=== PATIENT | female | born 1980 | race Caucasian/White ===

== ENCOUNTER 2016-02-21 08:49 | Emergency (ER) | payer BC, OTHER ==
[2016-02-21 08:55] VITALS: TEMP 98.3
[2016-02-21] MEDS ORDERED: SODIUM CHLORIDE 0.9% 500 ML IV STA (09:07)
[2016-02-21] MEDS ORDERED: RX INFO: IV CONTRAST WAS GIVEN 1 EACH MISC MISCELLANE PRN (09:07)
--- NOTE | 2016-02-21 09:11 | ED ---
Abdominal Pain HPI - General Chief Complaint: Abdominal Pain Stated Complaint: abd pain Time Seen by Provider: 02/21/16 08:59 Source: patient, RN notes reviewed Mode of arrival: ambulatory Limitations: no limitations - History of Present Illness Initial Comments: 35-year-old female presents emergency Department with chief complaint of right lower quadrant abdominal pain. Patient was sent from primary care physician's office. Patient states she's been having pain over the last 4-5 days. She did have one day of fever 101.5. Patient states she's been on nausea but no vomiting no diarrhea no constipation. Patient states that she had a normal mental cycle. Patient denies any chance . Patient denies any dysuria , hematuria or vaginal bleeding vaginal discharge. Patient states that the bumps arose to bother her. Patient states movement causes increased pain. - Related Data Home Medications Medication Instructions Recorded Confirmed Ibuprofen [Motrin] 400 mg PO Q6HR PRN 02/21/16 02/21/16 Previous Rx's Medication Instructions Recorded Acetaminophen-Codeine 300-30mg 1 tab PO Q4H PRN #20 tablet 02/21/16 [Tylenol #3] Ibuprofen [Motrin] 600 mg PO Q8HR PRN #30 tab 02/21/16 Allergies Allergy/AdvReac Type Severity Reaction Status Date / Time latex Allergy Swelling Verified 02/21/16 09:50 Review of Systems ROS Statement: Those systems with pertinent positive or pertinent negative responses have been documented in the HPI. ROS Other: All systems not noted in ROS Statement are negative. Past Medical History Additional Past Medical History / Comment(s): celiac disease History of Any Multi-Drug Resistant Organisms: None Reported Past Surgical History: Section Past Psychological History: No Psychological Hx Reported Smoking Status: Current every day smoker Past Alcohol Use History: Occasional Past Drug Use History: None Reported General Exam Limitations: no limitations General appearance: alert, in no apparent distress Head exam: Present: atraumatic, normocephalic, normal inspection Respiratory exam: Present: normal lung sounds bilaterally. Absent: respiratory distress, wheezes, rales, rhonchi, stridor Cardiovascular Exam: Present: regular rate, normal rhythm, normal heart sounds. Absent: systolic murmur, diastolic murmur, rubs, gallop, clicks GI/Abdominal exam: Present: soft, tenderness (Moderate right lower quadrant tenderness), normal bowel sounds, other (Positive psoas test). Absent: distended, guarding, rebound, rigid Back exam: Absent: CVA tenderness (R), CVA tenderness (L) Skin exam: Present: warm, dry, intact, normal color. Absent: rash Course Vital Signs 02/21/16 08:52 Temperature 98.3 F Pulse Rate 85 Respiratory 18 Rate Blood Pressure 113/72 O2 Sat by Pulse 100 Oximetry Medical Decision Making - Medical Decision Making 35-year-old female presented emergency Department chief complaint right lower quadrant abdominal pain. Patient has a 2.3 cm ovarian cyst. Patient has some enteritis changes. Patient will be discharged with pain medication advised to follow-up with [facility] [facility]. Return parameters were discussed. - Lab Data Result diagrams: 02/21/16 09:10 02/21/16 09:10 Lab Results 02/21/16 02/21/16 02/21/16 Range/Units 09:10 09:10 09:10 WBC 7.9 (3.8-10.6) k/uL RBC 4.51 (3.80-5.40) m/uL Hgb 14.0 (11.4-16.0) gm/dL Hct 42.9 (34.0-46.0) % MCV 95.2 (80.0-100.0) fL MCH 31.1 (25.0-35.0) pg MCHC 32.6 (31.0-37.0) g/dL RDW 12.1 (11.5-15.5) % Plt Count 266 (150-450) k/uL Neutrophils % 59 % Lymphocytes % 31 % Monocytes % 6 % Eosinophils % 2 % Basophils % 0 % Neutrophils # 4.6 (1.3-7.7) k/uL Lymphocytes # 2.5 (1.0-4.8) k/uL Monocytes # 0.5 (0-1.0) k/uL Eosinophils # 0.1 (0-0.7) k/uL Basophils # 0.0 (0-0.2) k/uL Sodium 141 (137-145) mmol/L Potassium 4.4 (3.5-5.1) mmol/L Chloride 103 (98-107) mmol/L Carbon Dioxide 28 (22-30) mmol/L Anion Gap 10 mmol/L BUN 8 (7-17) mg/dL Creatinine 0.68 (0.52-1.04) mg/dL Est GFR (MDRD) Af Amer >60 (>60 ml/min/1.73 sqM) Est GFR (MDRD) Non-Af >60 (>60 ml/min/1.73 sqM) Glucose 87 (74-99) mg/dL Calcium 9.2 (8.4-10.2) mg/dL Total Bilirubin 0.7 (0.2-1.3) mg/dL AST 28 (14-36) U/L ALT 49 (9-52) U/L Alkaline Phosphatase 59 (38-126) U/L Total Protein 7.5 (6.3-8.2) g/dL Albumin 4.1 (3.5-5.0) g/dL Amylase 43 (30-110) U/L Lipase 154 (23-300) U/L Urine Color Yellow Urine Appearance Clear (Clear) Urine pH 5.5 (5.0-8.0) Ur Specific [place] 1.013 (1.001-1.035) Urine Protein Negative (Negative) Urine Glucose (UA) Negative (Negative) Urine Ketones Negative (Negative) Urine Blood Negative (Negative) Urine Nitrate Negative (Negative) Urine Bilirubin Negative (Negative) Urine Urobilinogen <2.0 (<2.0) mg/dL Ur Leukocyte Esterase Negative (Negative) Urine HCG, Qual (Not Detectd) 02/21/16 Range/Units 09:10 WBC (3.8-10.6) k/uL RBC (3.80-5.40) m/uL Hgb (11.4-16.0) gm/dL Hct (34.0-46.0) % MCV (80.0-100.0) fL MCH (25.0-35.0) pg MCHC (31.0-37.0) g/dL RDW (11.5-15.5) % Plt Count (150-450) k/uL Neutrophils % % Lymphocytes % % Monocytes % % Eosinophils % % Basophils % % Neutrophils # (1.3-7.7) k/uL Lymphocytes # (1.0-4.8) k/uL Monocytes # (0-1.0) k/uL Eosinophils # (0-0.7) k/uL Basophils # (0-0.2) k/uL Sodium (137-145) mmol/L Potassium (3.5-5.1) mmol/L Chloride (98-107) mmol/L Carbon Dioxide (22-30) mmol/L Anion Gap mmol/L BUN (7-17) mg/dL Creatinine (0.52-1.04) mg/dL Est GFR (MDRD) Af Amer (>60 ml/min/1.73 sqM) Est GFR (MDRD) Non-Af (>60 ml/min/1.73 sqM) Glucose (74-99) mg/dL Calcium (8.4-10.2) mg/dL Total Bilirubin (0.2-1.3) mg/dL AST (14-36) U/L ALT (9-52) U/L Alkaline Phosphatase (38-126) U/L Total Protein (6.3-8.2) g/dL Albumin (3.5-5.0) g/dL Amylase (30-110) U/L Lipase (23-300) U/L Urine Color Urine Appearance (Clear) Urine pH (5.0-8.0) Ur Specific [place] (1.001-1.035) Urine Protein (Negative) Urine Glucose (UA) (Negative) Urine Ketones (Negative) Urine Blood (Negative) Urine Nitrate (Negative) Urine Bilirubin (Negative) Urine Urobilinogen (<2.0) mg/dL Ur Leukocyte Esterase (Negative) Urine HCG, Qual Not Detected (Not Detectd) Disposition Clinical Impression: Abdominal pain, Right ovarian cyst Disposition: HOME SELF-CARE Condition: Stable Instructions: Ovarian Cyst (ED) Additional Instructions: Please return to the Emergency Department if symptoms worsen or any other concerns. Prescriptions: Acetaminophen-Codeine 300-30mg [Tylenol #3] 1 tab PO Q4H PRN #20 tablet PRN Reason: pain Ibuprofen [Motrin] 600 mg PO Q8HR PRN #30 tab PRN Reason: Pain Time of Disposition: 10:52
[2016-02-21 09:31] LABS: Appearance,Urine Clear (Clear); Bilirubin,Urine Negative (Negative); Glucose,Urine (UA) Negative (Negative); Ketones,Urine Negative (Negative); Leukocyte Esterase,Urine Negative (Negative); Nitrite,Urine Negative (Negative); PH, Urine 5.5 (5.0-8.0); Protein,Urine Negative (Negative); Specific Gravity,Urine 1.013 (1.001-1.035); UA Billing (MACRO vs. MICRO) CHEM; Urobilinogen,Urine <2.0 mg/dL (<2.0)
[2016-02-21 09:37] LABS: Basophils % (A) 0 %; CH 31.6; CHCM 33.3; Eosinophils # (A) 0.1 k/uL (0-0.7); Eosinophils % (A) 2 %; HCT 42.9 % (34.0-46.0); HDW 2.28; Luc # (Auto) 0.14; Luc % (Auto) 2; Lymphocytes # (A) 2.5 k/uL (1.0-4.8); Lymphocytes % (A) 31 %; MCH 31.1 pg (25.0-35.0); MCHC 32.6 g/dL (31.0-37.0); MCV 95.2 fL (80.0-100.0); Mean Platelet Volume 7.1; Monocytes # (A) 0.5 k/uL (0-1.0); Monocytes % (A) 6 %; Neutrophils # (A) 4.6 k/uL (1.3-7.7); Neutrophils % (A) 59 %; RBC 4.51 m/uL (3.80-5.40); RDW 12.1 % (11.5-15.5); WBC 7.9 k/uL (3.8-10.6); WBC (Perox) 7.95
[2016-02-21 09:48] LABS: ALT 49 U/L (9-52); AST 28 U/L (14-36); Alkaline Phosphatase 59 U/L (38-126); Amylase 43 U/L (30-110); Anion Gap 10 mmol/L; Blood Urea Nitrogen 8 mg/dL (7-17); Calcium 9.2 mg/dL (8.4-10.2); Carbon Dioxide 28 mmol/L (22-30); Chloride 103 mmol/L (98-107); Glucose 87 mg/dL (74-99); Non-African American GFR(MDRD) >60 (>60 ml/min/1.73 sqM); Potassium 4.4 mmol/L (3.5-5.1); Sodium 141 mmol/L (137-145); Total Bilirubin 0.7 mg/dL (0.2-1.3); Total Protein 7.5 g/dL (6.3-8.2)
--- NOTE | 2016-02-21 10:40 | CT ---
EXAMINATION TYPE: CT abdomen pelvis w con DATE OF EXAM: 02/21/2016 10:09 AM COMPARISON: NONE HISTORY: 35-year-old female with abdominal pain, complains of RLQ pain. TECHNIQUE: Contiguous axial scanning of the abdomen and pelvis following administration of 100 ml Omn ipaque 300 IV contrast. Delayed images through the kidneys and coronal/sagittal reconstructions perf ormed. CT DLP: 1511 mGycm Automated exposure control for dose reduction was used. FINDINGS: Heart is normal size without pericardial effusion. Lung bases clear without pleural effusion. Slightly diminished attenuation of the liver as compared to the spleen on portal venous phase. There may be some fatty sparing along the cyndie hepatis. No focal liver lesion is seen. Portal venous syste m is patent. No biliary ductal dilatation. Gallbladder, adrenal glands, right kidney, spleen, and pancreas appear within normal limits. Punctate 2 mm nonobstructive calculus lower pole left kidney. Incidental umbilical augmentation. No dilated small bowel, free fluid, or free air. Scattered dominant but nonenlarged mesenteric lymph nodes measure up to 5 mm. No retroperitoneal lymphadenopathy. Normal appendix. There is some liquid stool within the cecum and some scattered fluid-filled small enedelia wel loops in the lower abdomen. Scattered mild colonic diverticulosis particularly along the descending colon without pericolonic inf lammatory change. Uterus is visualized as are both ovaries. There is a 2.3 cm cystic structure within the right ovary. No abnormal fluid collection in the pelvis or pelvic lymphadenopathy seen. Bones: No osseous destructive process. There is some posterior bulging disc at L5-S1. IMPRESSION: 1. NORMAL APPENDIX. 2. SOME LIQUID STOOL IN THE CECUM AND FLUID WITHIN LOWER ABDOMINAL SMALL BOWEL LOOPS COULD REFLECT AN ENTERITIS. 3. SUSPECT HEPATIC STEATOSIS. CORRELATE WITH LFT's, LIPID PROFILE, AND PATIENT RISK FACTORS. 4. A 2 MM NONOBSTRUCTIVE LEFT RENAL CALCULUS, MILD LEFT HEMICOLONIC DIVERTICULOSIS, AND A 2.3 CM SIOBHAN NANT FOLLICLE OR FUNCTIONAL CYST IN THE RIGHT OVARY.
[2016-02-21 11:12] VITALS: BP 103/57; PULSE 63; RESP 16
== END 2016-02-21 11:12 | disposition home or self-care (01) ==
LOC: EC 08:49
DX: N83.201 Unspecified ovarian cyst, right side (principal); F17.200 Nicotine dependence, unspecified, uncomplicated; Z91.040 Latex allergy status
CPT/HCPCS: 99284; 96360; 96361; 36415; 80053; 82150; 83690; 85025; 81003; 81025; 74177; Q9967

== ENCOUNTER 2017-10-12 02:21 | Emergency (ER) | payer BC, OTHER ==
[2017-10-12] MEDS ORDERED: IBUPROFEN 800 MG TAB PO STA (02:47)
--- NOTE | 2017-10-12 03:11 | XR ---
EXAMINATION TYPE: XR hand complete RT DATE OF EXAM: 10/12/2017 COMPARISON: NONE HISTORY: Thumb injury TECHNIQUE: 3 views FINDINGS: Metacarpals are intact. I see no fracture nor dislocation. Thumb appears intact. IMPRESSION: No acute abnormality of the right hand.
--- NOTE | 2017-10-12 03:38 | ED ---
General Adult HPI - General Chief complaint: Extremity Injury, Upper Stated complaint: [facility] THUMB INJURY Time Seen by Provider: 10/12/17 02:40 Source: patient, RN notes reviewed Mode of arrival: ambulatory Limitations: no limitations - History of Present Illness Initial comments: 36-year-old female presents to the emergency determine for a chief complaint of right thumb injury occurring about 2 hours ago. Patient states she was at work when she jammed her right thumb against a machine. Patient states she wants to make sure it isn't broken. Patient is able to move the thumb but states it is painful. She states the dorsal aspect of the right thumb is on is causing her the most pain. Patient denies any other injuries at work. Patient denies hitting her head. Patient denies ever having surgery on that hand. Patient has no other complaints at this time including shortness of breath, chest pain, abdominal pain, nausea or vomiting, headache, or visual changes. - Related Data Home Medications Medication Instructions Recorded Confirmed No Known Home Medications 10/12/17 10/12/17 Allergies Allergy/AdvReac Type Severity Reaction Status Date / Time latex Allergy Swelling Verified 02/21/16 09:50 Review of Systems ROS Statement: Those systems with pertinent positive or pertinent negative responses have been documented in the HPI. ROS Other: All systems not noted in ROS Statement are negative. Past Medical History Additional Past Medical History / Comment(s): celiac disease History of Any Multi-Drug Resistant Organisms: None Reported Past Surgical History: Section Past Psychological History: No Psychological Hx Reported Smoking Status: Current every day smoker Past Alcohol Use History: Rare Past Drug Use History: None Reported General Exam Limitations: no limitations General appearance: alert, in no apparent distress Head exam: Present: atraumatic, normocephalic, normal inspection Eye exam: Present: normal appearance. Absent: scleral icterus, conjunctival injection ENT exam: Present: normal exam, mucous membranes moist Neck exam: Present: normal inspection, full ROM. Absent: tenderness, meningismus, lymphadenopathy Respiratory exam: Present: normal lung sounds bilaterally. Absent: respiratory distress, wheezes, rales, rhonchi, stridor Cardiovascular Exam: Present: regular rate, normal rhythm, normal heart sounds. Absent: systolic murmur, diastolic murmur, rubs, gallop, clicks Extremities exam: Present: tenderness (Patient has tenderness over the dorsal proximal phalange, MCP and PIP joint of the right thumb. No tenderness over the distal phalanges.), normal capillary refill (Capillary refill less than 2 seconds and radial pulse 2+ in the right upper extremity), joint swelling ( Minimal swelling noted of right thumb), other (Sensation intact in right thumb. No evidence of infection. No erythema or increased warmth.). Absent: full ROM (Patient is able to flex and extend it does have limited range of due to pain in the right thumb.) Course Vital Signs 10/12/17 02:26 Temperature 98.2 F Pulse Rate 65 Respiratory 20 Rate Blood Pressure 117/77 O2 Sat by Pulse 98 Oximetry Medical Decision Making - Medical Decision Making 36-year-old female presents to the emergency department for a chief complaint of right thumb pain 2 hours. Patient accidentally jammed her thumb while at work. Patient did not sustain any other injuries. On exam patient is able to move all joints of the right thumb although does have some limited range of motion due to pain of the right thumb. Tenderness over the proximal phalanges and MCP and IP joint of the right thumb. No tenderness in the scaphoid or the rest of the right hand. Mild swelling noted to the thumb. Neurovascular intact. X-ray demonstrates no acute fractures or dislocations. Patient likely has a contusion or sprain of the right thumb. However I did discuss possibility of repeat x-rays in 7-10 days if symptoms continue. Otherwise patient will rest ice and elevate the right thumb. Lucien wrap was applied. Patient will take Motrin and Tylenol for pain and follow-up with primary care or orthopedics in one to 2 days for recheck. I did write patient a note that limits the use of the right thumb at work as patient would like to return to work at her scheduled shift tomorrow. Disposition Clinical Impression: Thumb injury Disposition: HOME SELF-CARE Condition: Good Instructions: Finger Sprain (ED), RICE Therapy (ED) Additional Instructions: Rest ice and elevate the right thumb. Please take Motrin and Tylenol for pain. Please follow up with primary care in 1-2 days. Please return to the emergency department if you have any worsening symptoms. Is patient prescribed a controlled substance at d/c from ED?: No Referrals: Germain Abebe DO [Doctor of Osteopathic Medicine] - 1-2 days Time of Disposition: 03:37
[2017-10-12 03:53] VITALS: BP 118/70; PULSE 67; RESP 18; TEMP 98
== END 2017-10-12 03:51 | disposition home or self-care (01) ==
LOC: EC 02:21
DX: S69.91XA Unspecified injury of right wrist, hand and finger(s), initial encounter (principal); F17.200 Nicotine dependence, unspecified, uncomplicated; Z91.040 Latex allergy status; W23.0XXA Caught, crushed, jammed, or pinched between moving objects, initial encounter; Y99.0 Civilian activity done for income or pay
CPT/HCPCS: 99283

== ENCOUNTER → 2019-02-01 | Outpatient (CLI) | payer BC ==
--- NOTE | 2019-02-01 09:52 | US ---
EXAMINATION TYPE: US abdomen limited DATE OF EXAM: 02/01/2019 COMPARISON: CT CLINICAL HISTORY: R945 ABN LIVER FUNCTIONS,E66.9 OBESITY. Abnormal labs EXAM MEASUREMENTS: Liver Length: 17.0 cm Gallbladder Wall: 0.3 cm CBD: 0.6 cm Right Kidney: 11.0 x 3.9 x 5.3 cm Pancreas: 2mm duct visualized is within normal limits of size, tail obscured by overlying bowel gas Liver: Upper limits of normal for size, difficult to penetrate, heterogeneous, possible fatty sparin g near GB Gallbladder: wnl Evidence for sonographic Velasquez's sign: No CBD: wnl Right Kidney: wnl IMPRESSION: Heterogenous hepatic echotexture, likely related to hepatic steatosis with probable focal fatty sparing near the gallbladder fossa (a typical location for focal fatty sparing). Correlate wit h liver function test results.
== END | disposition home or self-care (01) ==
LOC: RADUSWWP 08:15
PROVIDERS: ATTEND Family Medicine
DX: R94.5 Abnormal results of liver function studies (principal); E66.9 Obesity, unspecified
CPT/HCPCS: 76705

== ENCOUNTER → 2019-11-07 | Outpatient (CLI) | payer BC ==
--- NOTE | 2019-11-07 09:50 | US ---
EXAMINATION TYPE: US liver DATE OF EXAM: 11/07/2019 COMPARISON: 02/01/2019 CLINICAL HISTORY: 39-year-old female R74.8 abn levels of serum enzymes. TECHNIQUE: Multiple sonographic images of the right upper quadrant are obtained. FINDINGS: EXAM MEASUREMENTS: Liver Length: 17.7 cm Gallbladder Wall: 0.2 cm CBD: 0.3 cm Right Kidney: 9.7 x 3.2 x 4.6 cm Pancreas: Obscured by bowel gas Liver: Increased attenuation, decreased visualization of vessels suggestive of fatty infiltrate Gallbladder: wnl Evidence for sonographic Velasquez's sign: No CBD: wnl Right Kidney: No hydronephrosis or masses seen IMPRESSION: Borderline hepatomegaly (17.7 cm) with at least moderate hepatic steatosis. Correlate with LFTs, lipi d profile, and patient risk factors. No gallstones or biliary ductal dilatation.
== END | disposition home or self-care (01) ==
LOC: RADUSWWP 06:52
PROVIDERS: ATTEND Family Medicine
DX: R16.0 Hepatomegaly, not elsewhere classified (principal); K76.0 Fatty (change of) liver, not elsewhere classified
CPT/HCPCS: 76705

== ENCOUNTER 2021-12-07 11:24 | Emergency (ER) | payer BC ==
[2021-12-07 11:38] VITALS: TEMP 98.5
[2021-12-07] MEDS ORDERED: SODIUM CHLORIDE 0.9% 1,000 ML IV STA (11:47)
[2021-12-07] MEDS ORDERED: MORPHINE SULFATE 4 MG/ML SYRINGE IVP STA (11:47)
[2021-12-07] MEDS ORDERED: ONDANSETRON 4 MG/2 ML VIAL IVP STA (11:47)
[2021-12-07 12:15] LABS: Basophils % (A) 0 %; Eosinophils # (A) 0.1 k/uL (0-0.7); Eosinophils % (A) 1 %; HCT 45.1 % (34.0-46.0); HGB 15.3 gm/dL (11.4-16.0); Lymphocytes # (A) 1.6 k/uL (1.0-4.8); Lymphocytes % (A) 9 %; MCH 34.5 pg (25.0-35.0); MCHC 33.8 g/dL (31.0-37.0); Mean Platelet Volume 7.8; Monocytes # (A) 0.7 k/uL (0-1.0); Monocytes % (A) 4 %; Neutrophils # (A) 14.4 k/uL (1.3-7.7); Neutrophils % (A) 84 %; Platelet Count 231 k/uL (150-450); RBC 4.43 m/uL (3.80-5.40); RDW 12.1 % (11.5-15.5); WBC 17.1 k/uL (3.8-10.6)
[2021-12-07 12:23] LABS: ALT 53 U/L (4-34); AST 25 U/L (14-36); African American GFR (CKD) >90 (>60 ml/min/1.73 sqM); Albumin 4.2 g/dL (3.5-5.0); Alkaline Phosphatase 71 U/L (38-126); Anion Gap 8 mmol/L; Blood Urea Nitrogen 10 mg/dL (7-17); Calcium 8.8 mg/dL (8.4-10.2); Carbon Dioxide 23 mmol/L (22-30); Chloride 104 mmol/L (98-107); Glucose 103 mg/dL (74-99); Lipase 159 U/L (23-300); Non-African American GFR(CKD) >90 (>60 ml/min/1.73 sqM); Potassium 4.9 mmol/L (3.5-5.1); Sodium 135 mmol/L (137-145); Total Bilirubin 1.2 mg/dL (0.2-1.3); Total Protein 7.1 g/dL (6.3-8.2)
[2021-12-07 12:27] LABS: Appearance,Urine Cloudy (Clear); Bacteria,Urine Rare /hpf; Bilirubin,Urine Negative (Negative); Blood,Urine Trace (Negative); Color,Urine Light Yellow; Glucose,Urine (UA) Negative (Negative); Ketones,Urine Negative (Negative); Leukocyte Esterase,Urine Negative (Negative); Mucus,Urine Rare /hpf; Nitrite,Urine Negative (Negative); PH, Urine 5.5 (5.0-8.0); Protein,Urine Negative (Negative); RBC,Urine 1 /hpf (0-5); Specific Gravity,Urine 1.014 (1.001-1.035); Squamous Epithelial Cell,Urine 4 /hpf (0-4); Urobilinogen,Urine <2.0 mg/dL (<2.0); WBC,Urine 2 /hpf (0-5)
--- NOTE | 2021-12-07 13:14 | CT ---
EXAMINATION TYPE: CT abdomen pelvis w con DATE OF EXAM: 12/07/2021 HISTORY: Left sided abdominal pain, s/p tubal ligation [address] DLP: 1064.3mGycm Automated Exposure Control for Dose Reduction was Utilized. CONTRAST: CT scan of the abdomen and pelvis is performed without oral but with IV Contrast, patient injected wi th 100 mL of Isovue 300. COMPARISON: CT study February 21, 2016 FINDINGS: LUNG BASES: No significant abnormality is appreciated. LIVER/GB: Visualized liver remains heterogeneously hypodense suggesting mild diffuse fatty infiltrati on similar to prior. PANCREAS: No significant abnormality is seen. SPLEEN: No significant abnormality is seen. ADRENALS: No significant abnormality is seen. KIDNEYS: Symmetric cortical medullary uptake and excretion without hydronephrosis seen bilaterally. S table 2 mm nonobstructing left renal calculus lower pole of the coronal image 57. BOWEL: Study suboptimal evaluation of bowel without enteric contrast. No suspicious small or large enedelia wel dilatation is seen. Stomach not greatly distended and thus suboptimally evaluated. There are some diverticula in the left and sigmoid colon greatest in number along the left colon. There is moderate to severe ill-defined fluid and fat stranding along the left colon. No free air. No well-formed flui d collection or abscess seen. Normal-appearing appendix redemonstrated. UTERUS/ADNEXA: Anteverted uterus. Left ovary has new 3.7 x 3.2 cm low dense lesion felt to reflect si mple ovarian cyst axial image 76. LYMPH NODES: No greater than 1cm abdominal or pelvic lymph nodes are appreciated. OSSEOUS STRUCTURES: No significant abnormality is seen. OTHER: No significant additional abnormality is seen. IMPRESSION: Findings consistent with a moderate to severe acute but uncomplicated diverticulitis invo lving the left colon as detailed above.
[2021-12-07] MEDS ORDERED: AMOXIC-POT CLAV 875-125MG 1 EACH TAB PO STA (13:18)
--- NOTE | 2021-12-07 13:43 | ED ---
General Adult HPI - General Chief complaint: Recheck/Abnormal Lab/Rx Stated complaint: post op abd pain Time Seen by Provider: 12/07/21 11:40 Source: patient Mode of arrival: ambulatory Limitations: no limitations - History of Present Illness Initial comments: Patient is a 41-year-old female who presents to the emergency department with a chief complaint of abdominal pain. She states symptoms started yesterday. Patient notes that she had tubal ligation surgery on 11/25/21 at [facility] in [place]. Patient states she has been feeling well since the surgery, not currently taking pain medication. Yesterday patient became endorsing left-sided abdominal pain. Describes the pain as a consistent aching. It is associated with nausea. Patient began having chills this morning. She went to urgent care who sent her to the emergency department. She denies fever, chest pain, shortness of breath, back pain, burning with urination, blood in urine. Does report diarrhea however this is a chronic issue for her due to her celiac disease. Denies blood in stool. - Related Data Previous Rx's Medication Instructions Recorded Amoxic-Pot Clav 875-125Mg 1 tab PO Q12HR 10 Days #20 tab 12/07/21 [Augmentin 875-125] Ibuprofen [Motrin] 800 mg PO Q6HR #30 tab 12/07/21 Ondansetron Odt [Zofran Odt] 4 mg PO Q8HR PRN #15 tab 12/07/21 Allergies Allergy/AdvReac Type Severity Reaction Status Date / Time latex Allergy Swelling Verified 12/07/21 11:38 Review of Systems ROS Statement: Those systems with pertinent positive or pertinent negative responses have been documented in the HPI. ROS Other: All systems not noted in ROS Statement are negative. Past Medical History Additional Past Medical History / Comment(s): celiac disease History of Any Multi-Drug Resistant Organisms: None Reported Past Surgical History: Section, Tubal Ligation Past Psychological History: No Psychological Hx Reported Smoking Status: Current every day smoker Past Alcohol Use History: Rare Past Drug Use History: Marijuana General Exam Limitations: no limitations General appearance: alert, in no apparent distress Eye exam: Present: normal appearance, PERRL, EOMI. Absent: scleral icterus, conjunctival injection, periorbital swelling Respiratory exam: Present: normal lung sounds bilaterally. Absent: respiratory distress, wheezes, rales, rhonchi, stridor Cardiovascular Exam: Present: regular rate, normal rhythm, normal heart sounds. Absent: systolic murmur, diastolic murmur, rubs, gallop, clicks GI/Abdominal exam: Present: soft, tenderness (LLQ), normal bowel sounds, other (healing surgical incisions). Absent: distended, guarding, rebound, rigid Neurological exam: Present: alert, oriented X3, CN II-XII intact Psychiatric exam: Present: normal affect, normal mood Skin exam: Present: warm, dry, intact, normal color. Absent: rash Course Vital Signs 12/07/21 12/07/21 11:36 13:52 Temperature 98.5 F Pulse Rate 90 83 Respiratory 20 16 Rate Blood Pressure 130/90 123/87 O2 Sat by Pulse 99 98 Oximetry Medical Decision Making - Medical Decision Making This is a 41-year-old presenting with left-sided abdominal pain. Afebrile. The abdomen is soft. There is significant left lower quadrant tenderness without rebound tenderness or guarding. Laboratory studies obtained. There is leukocytosis at 17.1. Other laboratory studies are relatively unremarkable. CT of the abdomen and pelvis with contrast was obtained which shows findings consistent with moderate to severe cube uncomplicated diverticulitis involving left colon. Pain and nausea controlled. Results discussed with patient. Patient is afebrile, looks well, no vomiting, no abdominal abscess or perforation. However given the severity of her diverticulitis on CT scan I did offer admission for pain control. Patient declined. She will be discharged with strict return parameters. I will send her home with Augmentin, Motrin 800, Zofran. She was given first dose of Augmentin in the emergency department. Dr. James is my attending. - Lab Data Result diagrams: 12/07/21 11:56 12/07/21 11:56 Lab Results 12/07/21 12/07/21 12/07/21 Range/Units 11:56 11:56 11:56 WBC 17.1 H (3.8-10.6) k/uL RBC 4.43 (3.80-5.40) m/uL Hgb 15.3 (11.4-16.0) gm/dL Hct 45.1 (34.0-46.0) % MCV 102.0 H (80.0-100.0) fL MCH 34.5 (25.0-35.0) pg MCHC 33.8 (31.0-37.0) g/dL RDW 12.1 (11.5-15.5) % Plt Count 231 (150-450) k/uL MPV 7.8 Neutrophils % 84 % Lymphocytes % 9 % Monocytes % 4 % Eosinophils % 1 % Basophils % 0 % Neutrophils # 14.4 H (1.3-7.7) k/uL Lymphocytes # 1.6 (1.0-4.8) k/uL Monocytes # 0.7 (0-1.0) k/uL Eosinophils # 0.1 (0-0.7) k/uL Basophils # 0.0 (0-0.2) k/uL Sodium 135 L (137-145) mmol/L Potassium 4.9 (3.5-5.1) mmol/L Chloride 104 (98-107) mmol/L Carbon Dioxide 23 (22-30) mmol/L Anion Gap 8 mmol/L BUN 10 (7-17) mg/dL Creatinine 0.63 (0.52-1.04) mg/dL Est GFR (CKD-EPI)AfAm >90 (>60 ml/min/1.73 sqM) Est GFR (CKD-EPI)NonAf >90 (>60 ml/min/1.73 sqM) Glucose 103 H (74-99) mg/dL Calcium 8.8 (8.4-10.2) mg/dL Total Bilirubin 1.2 (0.2-1.3) mg/dL AST 25 (14-36) U/L ALT 53 H (4-34) U/L Alkaline Phosphatase 71 (38-126) U/L Total Protein 7.1 (6.3-8.2) g/dL Albumin 4.2 (3.5-5.0) g/dL Lipase 159 (23-300) U/L Urine Color Urine Appearance (Clear) Urine pH (5.0-8.0) Ur Specific [place] (1.001-1.035) Urine Protein (Negative) Urine Glucose (UA) (Negative) Urine Ketones (Negative) Urine Blood (Negative) Urine Nitrite (Negative) Urine Bilirubin (Negative) Urine Urobilinogen (<2.0) mg/dL Ur Leukocyte Esterase (Negative) Urine RBC (0-5) /hpf Urine WBC (0-5) /hpf Ur Squamous Epith Cells (0-4) /hpf Urine Bacteria (None) /hpf Urine Mucus (None) /hpf Coronavirus (PCR) (Not Detectd) Influenza Type A RNA Not Detected (Not Detectd) Influenza Type B (PCR) Not Detected (Not Detectd) 12/07/21 12/07/21 Range/Units 11:56 11:56 WBC (3.8-10.6) k/uL RBC (3.80-5.40) m/uL Hgb (11.4-16.0) gm/dL Hct (34.0-46.0) % MCV (80.0-100.0) fL MCH (25.0-35.0) pg MCHC (31.0-37.0) g/dL RDW (11.5-15.5) % Plt Count (150-450) k/uL MPV Neutrophils % % Lymphocytes % % Monocytes % % Eosinophils % % Basophils % % Neutrophils # (1.3-7.7) k/uL Lymphocytes # (1.0-4.8) k/uL Monocytes # (0-1.0) k/uL Eosinophils # (0-0.7) k/uL Basophils # (0-0.2) k/uL Sodium (137-145) mmol/L Potassium (3.5-5.1) mmol/L Chloride (98-107) mmol/L Carbon Dioxide (22-30) mmol/L Anion Gap mmol/L BUN (7-17) mg/dL Creatinine (0.52-1.04) mg/dL Est GFR (CKD-EPI)AfAm (>60 ml/min/1.73 sqM) Est GFR (CKD-EPI)NonAf (>60 ml/min/1.73 sqM) Glucose (74-99) mg/dL Calcium (8.4-10.2) mg/dL Total Bilirubin (0.2-1.3) mg/dL AST (14-36) U/L ALT (4-34) U/L Alkaline Phosphatase (38-126) U/L Total Protein (6.3-8.2) g/dL Albumin (3.5-5.0) g/dL Lipase (23-300) U/L Urine Color Light Yellow Urine Appearance Cloudy H (Clear) Urine pH 5.5 (5.0-8.0) Ur Specific [place] 1.014 (1.001-1.035) Urine Protein Negative (Negative) Urine Glucose (UA) Negative (Negative) Urine Ketones Negative (Negative) Urine Blood Trace H (Negative) Urine Nitrite Negative (Negative) Urine Bilirubin Negative (Negative) Urine Urobilinogen <2.0 (<2.0) mg/dL Ur Leukocyte Esterase Negative (Negative) Urine RBC 1 (0-5) /hpf Urine WBC 2 (0-5) /hpf Ur Squamous Epith Cells 4 (0-4) /hpf Urine Bacteria Rare H (None) /hpf Urine Mucus Rare H (None) /hpf Coronavirus (PCR) Not Detected (Not Detectd) Influenza Type A RNA (Not Detectd) Influenza Type B (PCR) (Not Detectd) Disposition Clinical Impression: Diverticulitis, Left sided abdominal pain, Nausea, Chills (without fever) Disposition: HOME SELF-CARE Condition: Fair Instructions (If sedation given, give patient instructions): Diverticulitis (ED) Additional Instructions: Take medication as directed. Follow-up with primary care provider in one to 2 days. Return to the emergency department if you experience new, concerning, or worsening symptoms. Prescriptions: Amoxic-Pot Clav 875-125Mg [Augmentin 875-125] 1 tab PO Q12HR 10 Days #20 tab Ibuprofen [Motrin] 800 mg PO Q6HR #30 tab Ondansetron Odt [Zofran Odt] 4 mg PO Q8HR PRN #15 tab PRN Reason: Nausea Is patient prescribed a controlled substance at d/c from ED?: No Referrals: None,Stated [Primary Care Provider] - 1-2 days Time of Disposition: 13:43
[2021-12-07 13:54] VITALS: BP 123/87; PULSE 83; RESP 16
== END 2021-12-07 14:00 | disposition home or self-care (01) ==
LOC: EC 11:24
DX: K57.92 Diverticulitis of intestine, part unspecified, without perforation or abscess without bleeding (principal); F17.200 Nicotine dependence, unspecified, uncomplicated; Z20.822 Contact with and (suspected) exposure to COVID-19; Z91.040 Latex allergy status
CPT/HCPCS: 36415; 80053; 83690; 85025; 81001; 87502; 87635; 74177; 99284; 96374; 96375; 96361; J2270; J2405; Q9967

== ENCOUNTER 2024-06-27 14:50 | Emergency (ER) | payer BC ==
--- NOTE | 2024-06-27 15:25 | ED ---
Back Pain HPI - General Chief Complaint: Back Pain/Injury Stated Complaint: Fall-Back pain Time Seen by Provider: 06/27/24 15:05 Source: patient, RN notes reviewed Limitations: no limitations - History of Present Illness Initial Comments: 43-year-old female presenting to the emergency department with complaints of lumbar and sacral back pain after a fall that occurred yesterday afternoon. Patient states that she was walking to her house when she slipped on a rug at the entryway causing her feet to come out from underneath her falling primarily onto the left side of her body. Patient states that she struck her lower back and the left side of her head on the ground. Patient denies loss of consciousness at the time of the fall. at bedside states that patient was acting appropriately after the fall and was able to get up on her own. Currently patient is denying headache, visual disturbances, neck pain, nausea. She is complaining of pain of the lower back with radiation to bilateral lower extremities. Denies loss of bladder or bowel control, saddle anesthesias, history of back surgeries. Denies hematuria. was evaluated at urgent care, however recommended that she report to the ER for further evaluation. - Related Data Previous Rx's Medication Instructions Recorded Amoxic-Pot Clav 875-125Mg 1 tab PO Q12HR 10 Days #20 tab 12/07/21 [Augmentin 875-125] Ibuprofen [Motrin] 800 mg PO Q6HR #30 tab 12/07/21 Ondansetron Odt [Zofran Odt] 4 mg PO Q8HR PRN #15 tab 12/07/21 Ketorolac [Toradol] 10 mg PO Q8HR #15 tab 06/27/24 Lidocaine 5% Patch [Lidoderm] 1 patch TOPICAL DAILY #14 patch 06/27/24 Allergies Allergy/AdvReac Type Severity Reaction Status Date / Time latex Allergy Swelling Verified 06/27/24 14:54 Review of Systems ROS Statement: Those systems with pertinent positive or pertinent negative responses have been documented in the HPI. ROS Other: All systems not noted in ROS Statement are negative. Past Medical History Additional Past Medical History / Comment(s): celiac disease History of Any Multi-Drug Resistant Organisms: None Reported Past Surgical History: Section, Tubal Ligation Past Psychological History: No Psychological Hx Reported Smoking Status: Current every day smoker Past Alcohol Use History: Rare Past Drug Use History: Marijuana General Exam Limitations: no limitations Course Vital Signs 06/27/24 06/27/24 14:51 16:57 Temperature 98.3 F 98.2 F Pulse Rate 79 72 Respiratory 18 19 Rate Blood Pressure 167/108 171/115 O2 Sat by Pulse 99 98 Oximetry Medical Decision Making - Medical Decision Making Was pt. sent in by a medical professional or institution (, PA, [employer] INSTRUCTOR, urgent care, hospital, or long-term...) When possible be specific @ -Patient was advised by urgent care reports Emergency Department for further evaluation. Did you speak to anyone other than the patient for history (EMS, parent, family, police, friend...)? What history was obtained from this source @ -No Did you review nursing and triage notes (agree or disagree)? Why? @ -I reviewed and agree with nursing and triage notes Were old charts reviewed (outside hosp., previous admission, EMS record, old EKG, old radiological studies, urgent care reports/EKG's, long-term records)? Report findings @ -No old charts were reviewed Differential Diagnosis (chest pain, altered mental status, abdominal pain women, abdominal pain men, vaginal bleeding, weakness, fever, dyspnea, syncope, headache, dizziness, GI bleed, back pain, seizure, CVA, palpatations, mental health, musculoskeletal)? @ -Differential Back Pain: Strain, zoster, cauda equina syndrome, epidural abscess, vertebral osteomyelitis, discitis, fracture, subluxation, disc herniation, DJD, spinal stenosis, dissection, AAA, pancreatitis, peptic ulcer disease, pyelonephritis, kidney stone, this is not meant to be an all-inclusive list. EKG interpreted by me (3pts min.). @ -None X-rays interpreted by me (1pt min.). @ -X-ray of the lumbar spine reveals no vertebral compression or malalignment, sacrum and coccyx age-indeterminate segmental tailbone fracture at the sacrococcygeal junction CT interpreted by me (1pt min.). @ -None done U/S interpreted by me (1pt. min.). @ -None done What testing was considered but not performed or refused? (CT, X-rays, U/S, labs)? Why? @ -None What meds were considered but not given or refused? Why? @ -None Did you discuss the management of the patient with other professionals (professionals i.e. , PA, [employer] INSTRUCTOR, lab, RT, psych nurse, dialysis social worker, large animal veterinarian, teacher, natural resource officer, director of casework department)? Give summary @ -No Was smoking cessation discussed for >3mins.? @ -No Was critical care preformed (if so, how long)? @ -No Were there social determinants of health that impacted care today? How? (Homelessness, low income, unemployed, alcoholism, drug addiction, transportation, low edu. Level, literacy, decrease access to med. care, shelter, rehab)? @ -No Was there de-escalation of care discussed even if they declined (Discuss DNR or withdrawal of care, Hospice)? DNR status @ -No What co-morbidities impacted this encounter? (DM, HTN, Smoking, COPD, CAD, Cancer, CVA, ARF, Chemo, Hep., AIDS, mental health diagnosis, sleep apnea, morbid obesity)? @ -None Was patient admitted / discharged? Hospital course, mention meds given and route, prescriptions, significant lab abnormalities, going to OR and other pertinent info. @ -Discharge. 43-year-old female presenting to emergency room for complaints of lumbar, sacrum, and coccyx back pain after fall that occurred yesterday. Patient is a from urgent care. Pain is reproducible on examination. Positive straight leg test bilaterally. Patient provided with IM injection of Toradol, oral Tylenol, and lidocaine patch. X-ray of the sacrum and coccyx reveals a possible segmental tailbone fracture at the sacrococcygeal junction. Patient provided with outpatient physician for Toradol Lidoderm patches and orthopedic referral. On examination there are no red flag findings concerning for cauda equina. Return parameters discussed. Case discussed with Dr. Carlisle Undiagnosed new problem with uncertain prognosis? @ -No Drug Therapy requiring intensive monitoring for toxicity (Heparin, Nitro, Insulin, Cardizem)? @ -No Were any procedures done? @ -No Diagnosis/symptom? @ -Sacrum/coccygeal pain after fall Acute, or Chronic, or Acute on Chronic? @ -Acute Uncomplicated (without systemic symptoms) or Complicated (systemic symptoms)? @ -Uncomplicated Side effects of treatment? @ -No Exacerbation, Progression, or Severe Exacerbation? @ -No Poses a threat to life or bodily function? How? (Chest pain, [place], [place], pneumonia, PE, COPD, DKA, ARF, appy, cholecystitis, CVA, Diverticulitis, Homicidal, Suicidal, threat to staff... and all critical care pts) @ -No Disposition Clinical Impression: Coccygeal pain, acute Disposition: HOME SELF-CARE Condition: Stable Instructions (If sedation given, give patient instructions): Coccyx Injury (ED) Additional Instructions: Please return to the Emergency Department if symptoms worsen or any other concerns. Prescriptions: Lidocaine 5% Patch [Lidoderm] 1 patch TOPICAL DAILY #14 patch Ketorolac [Toradol] 10 mg PO Q8HR #15 tab Is patient prescribed a controlled substance at d/c from ED?: No Referrals: None,Stated [Primary Care Provider] - 1-2 days Mac Dave DO [Doctor of Osteopathic Medicine] - 1-2 days Time of Disposition: 16:51
[2024-06-27] MEDS: LIDOCAINE 4% PATCH TOPICAL ONE (15:36)
[2024-06-27] MEDS: ACETAMINOPHEN TAB 500 MG TAB PO STA (15:37)
[2024-06-27] MEDS: KETOROLAC 15 MG/ML 1 ML VIAL IM STA (15:37)
--- NOTE | 2024-06-27 16:35 | XR ---
EXAMINATION TYPE: XR lumbar spine 3V, XR sacrum coccyx 3 views DATE OF EXAM: 06/27/2024 3:59 PM COMPARISON: None CLINICAL INDICATION: Female, 43 years old with history of fall, pain; PHH, pain FINDINGS: Lumbar spine: 5 lumbar type vertebral bodies. Incidental nipple ring. Some right lateral endplate spondylosis upper lumbar spine. Mild degenerative disc disease throughout with minimal endplate spondylosis. Early dis c height loss at T11-T12 and mild disc bulging L1-L2. Mild facet arthropathy lower lumbar spine. Vert ebral body heights are preserved and alignment is maintained. Sacrum coccyx: SI joints appear symmetric and intact. Small delineation to be arcuate lines of the sacrum. Pubic sym physis is intact. There is 3 mm anterior step off near the sacrococcygeal junction and 5 mm anterior step off at the upper coccygeal segment. These are age indeterminate injuries. IMPRESSION: 1. Lumbar spine: Mild multilevel degenerative disc disease. Mild facet arthropathy lower lumbar spine . No vertebral compression collapse or malalignment. 2. Sacrum and coccyx: Age-indeterminate segmental tailbone fracture at the sacrococcygeal junction. C orrelate for any focal pain here. [facility], , 06/27/2024 4:32 PM
[2024-06-27 17:00] VITALS: PULSE 72; RESP 19; TEMP 98.2
[2024-06-27 17:06] VITALS: BP 161/110
== END 2024-06-27 17:08 | disposition home or self-care (01) ==
LOC: EC 14:50
DX: S32.2XXA Fracture of coccyx, initial encounter for closed fracture (principal); S32.110A Nondisplaced Zone I fracture of sacrum, initial encounter for closed fracture; F17.200 Nicotine dependence, unspecified, uncomplicated; Z91.040 Latex allergy status; W01.0XXA Fall on same level from slipping, tripping and stumbling without subsequent striking against object, initial encounter; Y93.01 Activity, walking, marching and hiking
CPT/HCPCS: 72100; 72220; 99284; 96372; J1885

== ENCOUNTER 2024-08-29 06:59 | Emergency (ER) | payer BC ==
[2024-08-29 07:04] VITALS: TEMP 98.1
--- NOTE | 2024-08-29 07:23 | ED ---
General Adult HPI - General Chief complaint: Dizziness Stated complaint: dizziness Time Seen by Provider: 08/29/24 07:05 Source: EMS Mode of arrival: EMS - History of Present Illness Initial comments: 43F with no known active medical history here for dizziness. She reported that this morning 3 to 4 hours ago she began to have dizziness that felt like her head was light with associated headache that was throbbing bitemporal, photophobila, tremors that have improved, vomting x3 nonbloody with recent food. Her blood sugar was checked at work and she was told it was normal. She was told her BP was elevated. She was also told that she had low grade fever the at 99F, brought down with ice packs. She then started to have worsening lightheadedness and weakness to the point of feeling like she was going to faint which led them to calling an ambulance. Not under stress more that usual. Works at a factory. She also reported that she occasionally drink alcohol. Denied flu like symptoms, chest pain, SOB, focal weakness, LOC, recent fall or trauma. Does not follow with PCP. - Related Data Previous Rx's Medication Instructions Recorded Amoxic-Pot Clav 875-125Mg 1 tab PO Q12HR 10 Days #20 tab 12/07/21 [Augmentin 875-125] Ibuprofen [Motrin] 800 mg PO Q6HR #30 tab 12/07/21 Ondansetron Odt [Zofran Odt] 4 mg PO Q8HR PRN #15 tab 12/07/21 Ketorolac [Toradol] 10 mg PO Q8HR #15 tab 06/27/24 Lidocaine 5% Patch [Lidoderm] 1 patch TOPICAL DAILY #14 patch 06/27/24 Ondansetron Odt [Zofran Odt] 4 mg PO Q8HR PRN #15 tab 08/29/24 Allergies Allergy/AdvReac Type Severity Reaction Status Date / Time latex Allergy Swelling Verified 08/29/24 07:04 Review of Systems ROS Statement: Those systems with pertinent positive or pertinent negative responses have been documented in the HPI. ROS Other: All systems not noted in ROS Statement are negative. Past Medical History Past Medical History: No Reported History Additional Past Medical History / Comment(s): celiac disease History of Any Multi-Drug Resistant Organisms: None Reported Past Surgical History: Section, Tubal Ligation Past Psychological History: No Psychological Hx Reported Smoking Status: Current every day smoker Past Alcohol Use History: Occasional Past Drug Use History: Marijuana General Exam - General Exam Comments Initial Comments: Physical examination: Vital signs reviewed General: non toxic, no distress, appears at stated age Head: atraumatic, normocephalic, symmetric Mouth: no lip lesion, mucus membranes moist Cardiovascular: S1S2 reg, no murmur Lungs: CTA bilateral, no rhonchi, no rales, no accessory muscle use Abdominal: soft, nondistended, nontender to palpation, no guarding Ext: muscle strength 5 out of 5 in all 4 extremities grossly, no gross muscle atrophy, no contractures, positive dorsalis pedis pulse bilateral, no edema Neuro: no gross focal neuro deficits Psych: Alert and oriented x3, appropriate affect and mood Course Vital Signs 08/29/24 08/29/24 07:01 08:37 Temperature 98.1 F Pulse Rate 73 83 Respiratory 16 18 Rate Blood Pressure 171/97 141/93 O2 Sat by Pulse 100 99 Oximetry - Reevaluation(s) Reevaluation #1: 08/29/24 07:52 Patient noted to have persistent nausea and vomiting. Given Zofran x 1 IVP Reevaluation #2: 08/29/24 09:45 Patient reported that her dizziness and nausea have improved. She has not developed any new symptoms or complaints. Medical Decision Making - Medical Decision Making Was pt. sent in by a medical professional or institution (MATTHEW [facility]ogue, NATURAL SCIENCES MANAGER, urgent care, hospital, or long-term...) When possible be specific @ -No Did you speak to anyone other than the patient for history (EMS, parent, family, police, friend...)? What history was obtained from this source @ -No Did you review nursing and triage notes (agree or disagree)? Why? @ -I reviewed and agree with nursing and triage notes Were old charts reviewed (outside hosp., previous admission, EMS record, old EKG, old radiological studies, urgent care reports/EKG's, long-term records)? Report findings @ -No old charts were reviewed Differential Diagnosis? @ -Differential Dizziness: Benign paroxysmal positional Vertigo, Meniere's disease, otitis media, acoustic neuroma, vertebrobasilar insufficiency, cerebellar stroke, encephalitis, hypo volemic, arrhythmia, coronary artery syndrome, anemia, this is not meant to be an all-inclusive list EKG interpreted by me (3pts min.). @ -As above X-rays interpreted by me (1pt min.). @ -None done CT interpreted by me (1pt min.). @ -None done U/S interpreted by me (1pt. min.). @ -None done What testing was considered but not performed or refused? (CT, X-rays, U/S, labs)? Why? @ -None What meds were considered but not given or refused? Why? @ -None Did you discuss the management of the patient with other professionals (professionals i.e. , PA, NATURAL SCIENCES MANAGER, lab, RT, psych nurse, high school social science teacher, emotionally impaired teacher, teacher, president and chief commercial officer, case briefer)? Give summary @ -Discussed with Dr. Devi, supervising physician Was smoking cessation discussed for >3mins.? @ -No Was critical care preformed (if so, how long)? @ -No Were there social determinants of health that impacted care today? How? (Homelessness, low income, unemployed, alcoholism, drug addiction, transportation, low edu. Level, literacy, decrease access to med. care, [facility], rehab)? @ -No Was there de-escalation of care discussed even if they declined (Discuss DNR or withdrawal of care, Hospice)? @ -No What co-morbidities impacted this encounter? (DM, HTN, Smoking, COPD, CAD, Cancer, CVA, ARF, Chemo, Hep., AIDS, mental health diagnosis, sleep apnea, morbid obesity)? @ -None Was patient admitted / discharged? Hospital course, mention meds given and route, prescriptions, significant lab abnormalities, going to OR and other pertinent info. @ -Discharged. She reported that this morning 3 to 4 hours ago she began to have dizziness that felt like her head was light with associated headache that was throbbing bitemporal, photophobila, tremors that have improved, vomting x3 nonbloody with recent food. Brain CT, brain CT angiography were ordered. Patient given Zofran IVP and 500 mL fluid bolus. Her symptoms improved and her blood pressure continued to improve throughout her stay. She is discharged with 3 days of oral Zofran and advised to hydrate properly and eat regular meals and to follow-up with PCP on outpatient basis. Patient given doctor's note as she missed work. Undiagnosed new problem with uncertain prognosis? @ -No Drug Therapy requiring intensive monitoring for toxicity (Heparin, Nitro, Insulin, Cardizem)? @ -No Were any procedures done? @ -No Diagnosis/symptom? @ -Dizziness, dehydration Acute, or Chronic, or Acute on Chronic? @ -Acute Uncomplicated (without systemic symptoms) or Complicated (systemic symptoms)? @ -Uncomplicated Side effects of treatment? @ -No Exacerbation, Progression, or Severe Exacerbation? @ -No Poses a threat to life or bodily function? How? (Chest pain, USA, LA, pneumonia, PE, COPD, DKA, ARF, appy, cholecystitis, CVA, Diverticulitis, Homicidal, Suicidal, threat to staff... and all critical care pts) @ -No - Lab Data Result diagrams: 08/29/24 07:39 08/29/24 07:39 Lab Results 08/29/24 08/29/24 08/29/24 Range/Units 07:39 07:39 07:39 WBC 5.90 (4.50-10.00) 10*3/uL RBC 3.20 L (4.10-5.20) 10*6/uL Hgb 12.9 (12.0-15.0) g/dL Hct 35.4 L (37.2-46.3) % MCV 110.6 H (80.0-97.0) fL MCH 40.3 H (27.0-32.0) pg MCHC 36.4 (32.0-37.0) g/dL Plt Count 174 (140-440) 10*3/uL MPV 9.1 L (9.5-12.2) fL Immature Gran % (Auto) 0.3 % Immature Gran # 0.02 (0.00-0.04) 10*3/uL Sodium 135 L (137-145) mmol/L Potassium 4.1 (3.5-5.1) mmol/L Chloride 105 (98-107) mmol/L Carbon Dioxide 20 L (22-30) mmol/L Anion Gap 10 mmol/L BUN 6 L (7-17) mg/dL Creatinine 0.51 L (0.52-1.04) mg/dL Est GFR (CKD-EPI)AfAm >90 (>60 ml/min/1.73 sqM) Est GFR (CKD-EPI)NonAf >90 (>60 ml/min/1.73 sqM) Glucose 103 H (74-99) mg/dL Calcium 8.6 (8.4-10.2) mg/dL Total Bilirubin 1.1 (0.2-1.3) mg/dL AST 324 H (14-36) U/L ALT 176 H (4-34) U/L Alkaline Phosphatase 135 H (38-126) U/L Troponin I <0.012 (0.000-0.034) ng/mL Total Protein 7.5 (6.3-8.2) g/dL Albumin 4.0 (3.5-5.0) g/dL Urine Color Urine Appearance (Clear) Urine pH (5.0-8.0) Ur Specific [place] (1.001-1.035) Urine Protein (Negative) Urine Glucose (UA) (Negative) Urine Ketones (Negative) Urine Blood (Negative) Urine Nitrite (Negative) Urine Bilirubin (Negative) Urine Urobilinogen (<2.0) mg/dL Ur Leukocyte Esterase (Negative) Urine HCG, Qual (Not Detectd) 08/29/24 08/29/24 Range/Units 07:46 07:46 WBC (4.50-10.00) 10*3/uL RBC (4.10-5.20) 10*6/uL Hgb (12.0-15.0) g/dL Hct (37.2-46.3) % MCV (80.0-97.0) fL MCH (27.0-32.0) pg MCHC (32.0-37.0) g/dL Plt Count (140-440) 10*3/uL MPV (9.5-12.2) fL Immature Gran % (Auto) % Immature Gran # (0.00-0.04) 10*3/uL Sodium (137-145) mmol/L Potassium (3.5-5.1) mmol/L Chloride (98-107) mmol/L Carbon Dioxide (22-30) mmol/L Anion Gap mmol/L BUN (7-17) mg/dL Creatinine (0.52-1.04) mg/dL Est GFR (CKD-EPI)AfAm (>60 ml/min/1.73 sqM) Est GFR (CKD-EPI)NonAf (>60 ml/min/1.73 sqM) Glucose (74-99) mg/dL Calcium (8.4-10.2) mg/dL Total Bilirubin (0.2-1.3) mg/dL AST (14-36) U/L ALT (4-34) U/L Alkaline Phosphatase (38-126) U/L Troponin I (0.000-0.034) ng/mL Total Protein (6.3-8.2) g/dL Albumin (3.5-5.0) g/dL Urine Color Yellow Urine Appearance Clear (Clear) Urine pH 6.5 (5.0-8.0) Ur Specific [place] 1.019 (1.001-1.035) Urine Protein Negative (Negative) Urine Glucose (UA) Negative (Negative) Urine Ketones Negative (Negative) Urine Blood Negative (Negative) Urine Nitrite Negative (Negative) Urine Bilirubin Negative (Negative) Urine Urobilinogen <2.0 (<2.0) mg/dL Ur Leukocyte Esterase Negative (Negative) Urine HCG, Qual Not Detected (Not Detectd) - EKG Data EKG Comments: Sinus arrhythmia with a rate of 67 bpm, FL interval 133 MS, QRS 78 MS, QTc 459 MS, no ST-T changes, inverted T waves in lead III Disposition Clinical Impression: Dehydration, Dizziness Disposition: HOME SELF-CARE Condition: Good Instructions (If sedation given, give patient instructions): Dizziness (ED) Additional Instructions: Drink plenty of fluids and eat regular meals. Advised to return if patient's symptoms worsen. Advised to follow-up with PCP Is patient prescribed a controlled substance at d/c from ED?: No Referrals: [facility] [NON-STAFF] - 1-2 days Time of Disposition: 09:47
[2024-08-29] MEDS: SODIUM CHLORIDE 0.9% 500 ML 500 ML IV STA (07:44)
[2024-08-29 07:49] LABS: Basophils # (A) 0.02 10*3/uL (0.00-0.10); Basophils % (A) 0.3 %; Eosinophils # (A) 0.07 10*3/uL (0.04-0.35); Eosinophils % (A) 1.2 %; HCT 35.4 % (37.2-46.3); HGB 12.9 g/dL (12.0-15.0); Lymphocytes # (A) 1.23 10*3/uL (0.90-5.00); Lymphocytes % (A) 20.8 %; MCH 40.3 pg (27.0-32.0); MCHC 36.4 g/dL (32.0-37.0); MCV 110.6 fL (80.0-97.0); Monocytes # (A) 0.54 10*3/uL (0.20-1.00); Monocytes % (A) 9.2 %; Neutrophils # (A) 4.02 10*3/uL (1.80-7.70); Neutrophils % (A) 68.2 %; Platelet Count 174 10*3/uL (140-440); RBC 3.20 10*6/uL (4.10-5.20); RDW 13.3 % (11.5-14.5); WBC 5.90 10*3/uL (4.50-10.00)
[2024-08-29 07:53] LABS: Bilirubin,Urine Negative (Negative); Blood,Urine Negative (Negative); Color,Urine Yellow; Glucose,Urine (UA) Negative (Negative); Ketones,Urine Negative (Negative); Leukocyte Esterase,Urine Negative (Negative); Nitrite,Urine Negative (Negative); PH, Urine 6.5 (5.0-8.0); Protein,Urine Negative (Negative); Specific Gravity,Urine 1.019 (1.001-1.035); Urobilinogen,Urine <2.0 mg/dL (<2.0)
[2024-08-29 07:53] LABS: ALT 176 U/L (4-34); AST 324 U/L (14-36); African American GFR (CKD) >90 (>60 ml/min/1.73 sqM); Albumin 4.0 g/dL (3.5-5.0); Alkaline Phosphatase 135 U/L (38-126); Anion Gap 10 mmol/L; Blood Urea Nitrogen 6 mg/dL (7-17); Calcium 8.6 mg/dL (8.4-10.2); Carbon Dioxide 20 mmol/L (22-30); Chloride 105 mmol/L (98-107); Glucose 103 mg/dL (74-99); Non-African American GFR(CKD) >90 (>60 ml/min/1.73 sqM); Potassium 4.1 mmol/L (3.5-5.1); Sodium 135 mmol/L (137-145); Total Protein 7.5 g/dL (6.3-8.2)
[2024-08-29] MEDS: ONDANSETRON 4 MG/2 ML VIAL IVP STA (08:33)
[2024-08-29 08:38] VITALS: RESP 18
--- NOTE | 2024-08-29 09:05 | CT ---
EXAMINATION TYPE: CT brain wo con DATE OF EXAM: 08/29/2024 8:44 AM COMPARISON: None. CLINICAL INDICATION: Female, 43 years old with history of actue headahce and dizziness, dizziness and headache, nausea dlp TECHNIQUE: Brain: Axial CT images of the brain were obtained with coronal and sagittal reformats created and rev iewed. Contrast used: None. Oral contrast used: None. CT DLP: 1102 mGycm, Automated exposure control for dose reduction was used. FINDINGS: Brain: Extra-axial spaces: No abnormal extra-axial fluid collections. Ventricular system: Within normal limits Cerebral parenchyma: No acute intraparenchymal hemorrhage or mass effect. The roman-white junction is well differentiated. Cerebellum: Unremarkable. Mass effect: No evidence of midline shift. Intracranial vasculature: unremarkable Soft tissues: Normal. Calvarium/osseous structures: No depressed skull fracture. Paranasal sinuses and mastoid air cells: Mild scattered paranasal sinus disease. Visualized orbits: Orbital contents are intact. IMPRESSION: No acute intracranial process. [facility], , 08/29/2024 9:03 AM
--- NOTE | 2024-08-29 09:38 | CT ---
EXAMINATION TYPE: CT angio head neck DATE OF EXAM: 08/29/2024 8:59 AM COMPARISON: CT. CLINICAL INDICATION: Female, 43 years old with history of actue headahce and dizziness; PHH, dizzines s and headache, nausea TECHNIQUE: Axially acquired helical CT angiogram of the head and neck was obtained with contrast. Axi al images are supplemented with 3D reconstructions and MIP images which were post-processed at an in dependent workstation. NASCET criteria used. Contrast used:65 mL of Isovue 370 with IV Contrast, Oral contrast used: None. CT DLP: 1694 mGycm, Automated exposure control for dose reduction was used. FINDINGS: CTA HEAD: No evidence of acute intracranial hemorrhage, mass effect, or midline shift. The ventricles, sulci, a nd cisterns are unremarkable. Vertebral arteries: The vertebral arteries are patent. Vertebral artery dominance: Codominant Basilar artery: The basilar artery is intact. The basilar artery bifurcation is normal. Internal Carotid arteries: The cervical, petrous, cavernous and supraclinoid segments are normal. ARNOLDO: Patent with no evidence of aneurysm. ACOM: Present without evidence of aneurysm. MCA: Patent with no evidence of aneurysm. SOFTWARE TEAM LEADER: origin right normal left Patent with no evidence of aneurysm. PCOM: Hypoplastic/ origin of the SOFTWARE TEAM LEADER right and normal left Dural sinuses: Patent. CTA NECK: Right Carotid System: The common carotid artery and external carotid artery are patent. The carotid bifurcation demonstrate s no evidence of hemodynamically significant stenosis. The remaining portions of the internal carotid artery demonstrate normal size without significant narrowing. Left Carotid System: The common carotid artery and external carotid artery are patent. The carotid bifurcation demonstrate s no evidence of hemodynamically significant stenosis. The remaining portions of the internal carotid artery demonstrate normal size without significant narrowing. Vertebral arteries are patent without evidence hemodynamically significant stenosis. There is a three-vessel aortic arch. The origins of the great vessels are patent. No evidence of hemo dynamically significant stenosis. Small subcentimeter right thyroid nodule. IMPRESSION: 1. No evidence of dissection of the cervical internal carotid arteries or vertebral arteries. 2. No any evidence of significant stenosis at the carotid bifurcations. 3. No evidence of intracranial high-grade stenosis or intracranial aneurysm. [facility], , 08/29/2024 9:35 AM
[2024-08-29 10:05] VITALS: BP 163/102; PULSE 68
== END 2024-08-29 10:04 | disposition home or self-care (01) ==
LOC: EC 06:59
DX: E86.0 Dehydration (principal); F17.200 Nicotine dependence, unspecified, uncomplicated; Z91.040 Latex allergy status
CPT/HCPCS: 36415; 93005; 80053; 84484; 85025; 81003; 81025; 70496; 70450; 70498; 99284; 96374; 96361; J2405; Q9967